=== PATIENT | female | born 1950 | race Caucasian/White ===

== ENCOUNTER 2017-04-01 06:19 | Inpatient (IN) ==
[2017-04-01] MEDS ORDERED: Albuterol 2.5 MG/3 ML NEBULIZER IH ONE (06:36)
[2017-04-01] MEDS ORDERED: cefOXitin 2,000 MG in D5% in Water (Mini-Bag+) 100 ML IVPB ONE (06:36)
[2017-04-01] MEDS ORDERED: Ringers Solution, Lactated 1,000 ML IVC SCH (06:45)
[2017-04-01] MEDS ORDERED: *HR* Succinylcholine 200 MG/10 ML VIAL IVP ONE (06:56)
[2017-04-01] MEDS ORDERED: Lidocaine -MPF 2% 2 ML VIAL ONE (06:56)
[2017-04-01] MEDS ORDERED: *HR* FentaNYL (PF) 100 MCG/2 ML VIAL ONE (06:56)
[2017-04-01] MEDS ORDERED: *HR* Propofol 200 MG/20 ML VIAL IVP ONE (06:56)
[2017-04-01] MEDS ORDERED: *HR* Rocuronium Bromide 50 MG/5 ML VIAL ONE (06:56)
[2017-04-01] MEDS ORDERED: Lidocaine -MPF 4% 5 ML AMPUL ONE (06:59)
[2017-04-01] MEDS ORDERED: Lidocaine -MPF 1% 2 ML VIAL ONE (06:59)
--- NOTE | 2017-04-01 07:07 | Anesthesia Evaluation PreOp ---
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 HX Other Medical History: GERD Anesthesia History: No Prior Anesthetic Complications, Past Anesthesia (RCR, MURALI , appy) Alcohol Use: none Drug use: none Medications and Allergies Metoprolol [Lopressor] 50 mg PO BID 06/06/15 [History] Simvastatin [Zocor] 40 mg PO HS 06/06/15 [History] Aspirin [Lo-Dose Aspirin EC] 81 mg PO DAILY 03/24/17 [History] Ferrous Sulfate [Slow Release Iron] 47.5 mg PO DAILY 03/24/17 [History] Losartan Potassium [Cozaar] 1 tab PO DAILY 03/24/17 [History] Omeprazole [PriLOSEC] 40 mg PO DAILY 03/24/17 [History] 3 Allergy/AdvReac Type Severity Reaction Status Date / Time No Known Allergies Allergy Verified 02/08/17 09:13 - Meds/Allergy Pre-op Review Medications Reviewed: Yes Allergies Reviewed: Yes Beta Blockers on Current Med List: Yes If Beta Blockers taken, Date/Time (Last Dose taken): today 043 Anesthesia Results - Labs Laboratory Tests 03/30/17 03/30/17 14:45 14:45 Hgb 13.9 Hct 42.8 Plt Count 199 Sodium 139 Potassium 4.1 BUN 11 Creatinine 0.76 - Imaging EKG: report reviewed (SINUS BRADYCARDIA MODERATE VOLTAGE CRITERIA FOR LVH) Additional studies: stress test: The exercise capacity was fair. Occasional PVCs noted during exercise. Exercise ECG is negative for ischemia. Gated LVEF > 70%. Perfusion imaging was negative for ischemia or infarct. Anesthesia Exam Selected Entries 04/01/17 06:50 Temperature 97.9 F Pulse Rate 55 Respiratory Rate 18 Blood Pressure 135/77 O2 Sat by Pulse Oximetry 98 Height: 63in Weight: 64kg NPO (# of Hours): 8 - HEENT Pupil (Motor): EOMI Mallampati: III Teeth: Poor dentition Oral Opening: Greater than 3 - PUBLICATIONS DESIGNER LOC: Oriented PUBLICATIONS DESIGNER Motor: Normal RUE, Normal LUE, Normal RLE, Normal LLE, Normal Face PUBLICATIONS DESIGNER Sensory: Normal: RUE, LUE, RLE, LLE, Face - Cardiac Rhythm: Regular Murmur: None - Pulmonary Breath Sounds: bilateral Clear Respiratory Effort: Symmetrical Anesthesia Assess/Plan ASA Score: 2 Modified Pearce Scale for Level of Consciousness: Cooperative, oriented, and tranquil Anesthetic Plan: General Monitoring Plan: Standard Monitors Recovery Plan: PACU (Discussed risks of GA, questions answered and agrees to proceed)
[2017-04-01] MEDS ORDERED: *HR* Midazolam HCl 2 MG/2 ML VIAL ONE (07:09)
--- NOTE | 2017-04-01 07:42 | History & Physical Report ---
Date of Encounter: 04/01/17 Time of Encounter: 07:41 24 Hour HP Update - Instructions Instructions: If the History and Physical is less than 30 days old and was completed prior to A.M. admission and or procedure and has NOT been updated on calendar day of procedure please complete this update prior to performing procedure. - Update Patient reports changes in Medical Condition: No Changes in examination, assessment, or condition: No Changes in Medication: No Preop tests/diagnostics Reviewed: Yes Surgery Remains Indicated: Yes Consent for Planned Operative Procedure(s) Verified: Yes - Pre-Operative Checklist Preoperative Checklist Indicated: Yes Prophylactic Antibiotic Ordered: Yes Home Medications Include Beta Roberto: Yes Beta Roberto Taken Today (Day of Surgery): Yes
[2017-04-01] MEDS ORDERED: *HR* Phenylephrine 10 MG/ML VIAL ONE (08:15)
[2017-04-01] MEDS ORDERED: *HR* Labetalol 20 MG/4 ML SYRINGE IVP PRN (08:38)
[2017-04-01] MEDS ORDERED: Ondansetron 4 MG/2 ML VIAL IVP PRN (08:38)
[2017-04-01] MEDS ORDERED: Ondansetron 4 MG/2 ML VIAL ONE (08:40)
[2017-04-01] MEDS ORDERED: Dexamethasone 4 MG/ML VIAL ONE (08:40)
[2017-04-01] MEDS ORDERED: Neostigmine Methylsulfate 3 MG/3 ML SYRINGE ONE (08:52)
[2017-04-01] MEDS ORDERED: Ketorolac 30 MG/ML VIAL ONE (08:55)
[2017-04-01] MEDS ORDERED: Lidocaine 1% 20 ML MDV ONE (08:57)
[2017-04-01] MEDS ORDERED: Ketamine *HR* 500 MG/10 ML MDV ONE (08:57)
[2017-04-01] MEDS ORDERED: Acetaminophen IV 1,000 MG/100 ML INFUS..BTL ONE (08:57)
[2017-04-01] MEDS ORDERED: *HR* HYDROmorphone 2 MG/ML SYRINGE ONE (10:59)
[2017-04-01] MEDS: *HR* HYDROmorphone (PF) 1 MG/ML SYRINGE IVP PRN ×3 (11:44→12:02)
[2017-04-01] MEDS ORDERED: Naloxone 0.4 MG/ML INJ IVP PRN ×2 (12:33→15:05)
[2017-04-01] MEDS ORDERED: *HR* HYDROmorphone 20 MG/20 ML PCA IVC PRN ×2 (12:36→15:39)
[2017-04-01] MEDS ORDERED: Ketorolac 15 MG/ML VIAL IVP PRN ×2 (12:37→15:05)
[2017-04-01] MEDS ORDERED: D5% in 0.45% NACL 1,000 ML IVC SCH (12:45)
[2017-04-01 13:45] LABS: BUN/Creatinine Ratio 22 (6-26); Blood Urea Nitrogen 17 mg/dL (7-20); Calcium 9.1 mg/dL (8.6-10.8); Carbon Dioxide 24 mEq/L (19-29); Chloride 109 mEq/L (98-109); Glucose 114 mg/dL (70-99); Osmolality,Calculated 290 (280-300); Potassium 4.1 mEq/L (3.5-4.5); Sodium 139 mEq/L (136-145); eGFR For African Americans > 60 (> 60); eGFR For Non-African Americans > 60 (> 60)
[2017-04-01] MEDS ORDERED: *HR* OxyCODONE/APAP 5/325 TABLET PO PRN (14:30)
[2017-04-01] MEDS ORDERED: Ipratropium/Albuterol Neb 3 ML IH PRN (15:05)
[2017-04-01 15:26] LABS: Hematocrit 37.5 % (35.3-44.9)
[2017-04-01 15:28] LABS: Hemoglobin 11.6 g/dL (11.5-15.4)
[2017-04-01] MEDS: D5% in 0.45% NACL 1,000 ML IVC SCH (16:41)
[2017-04-01] MEDS: Metoprolol XL (24 HR) Succ 25 MG TAB.ER.24H PO SCH (20:24)
[2017-04-02] MEDS: Ondansetron 4 MG/2 ML VIAL IVP PRN (02:41)
[2017-04-02 05:58] LABS: Basophils % 0.1 %; Hematocrit 35.5 % (35.3-44.9); Immature Granulocytes % 0.5 % (0-4); Lymphocytes # 2.9 K/mcL (0.6-4.6); Lymphocytes % 18.9 %; Mean Corpuscular Hemoglobin 26.5 pg (28.0-33.3); Mean Corpuscular Volume 85.5 fL (83.0-100.0); Mean Platelet Volume 12.4 fL (9.4-12.4); Monocytes # 1.6 K/mcL (0.0-1.3); Monocytes % 10.2 %; Neutrophils # 10.8 K/mcL (1.6-8.9); Platelet Count 149 K/mcL (140-400); Red Blood Count 4.15 M/mcL (3.82-4.97); Red Cell Distribution Width 20.5 % (11.5-14.5); Segmented Neutrophils % 70.3 %
[2017-04-02 06:10] LABS: BUN/Creatinine Ratio 20 (6-26); Blood Urea Nitrogen 15 mg/dL (7-20); Calcium 8.7 mg/dL (8.6-10.8); Carbon Dioxide 23 mEq/L (19-29); Chloride 106 mEq/L (98-109); Glucose 122 mg/dL (70-99); Osmolality,Calculated 284 (280-300); Sodium 136 mEq/L (136-145); eGFR For African Americans > 60 (> 60); eGFR For Non-African Americans > 60 (> 60)
[2017-04-02 06:12] LABS: Potassium 4.1 mEq/L (3.5-4.5)
[2017-04-02] MEDS: D5% in 0.45% NACL 1,000 ML IVC SCH ×2 (06:12→23:13)
[2017-04-02] MEDS: Tiotropium 18 MCG inhalation IH SCH (08:14)
[2017-04-02] MEDS: Losartan/HCTZ 50-12.5 TABLET PO SCH (09:17)
[2017-04-02] MEDS: Metoprolol XL (24 HR) Succ 25 MG TAB.ER.24H PO SCH ×2 (09:17→23:21)
--- NOTE | 2017-04-02 11:12 | Operative Note ---
Date of procedure: 04/02/17 Pre-op diagnosis: Cecal A-V malformation Post-op diagnosis: same Procedure: Robotic ascending colectomy Anesthesia: GEOVANNA Surgeon: Rainer Garsia Estimated blood loss (cc): 25 Specimen: Right colon Condition: stable Disposition: same day Procedure in Detail: After informed consent, the patient was taken to the operating room. The after adequate anesthesia the abdomen was prepped and draped. The patient was then placed in a slight head upposition and the robot was brought over the patient and the arms wereconnected. Once in place, I sat at the console and performed a dissection of the cecum and appendix, as well as the terminal ileum due to scarring retarded our excursion. Once this was freed, I then grasped the cecum with a clamp utilizing robotic arm number one and with the vessel sealer and another hand began to take down the peritoneal attachment around the ileocolic vessel. Once we were able to gain access into the retroperitoneum, the duodenum was identified and kept out of harm's way. The ileocolic vessel was taken with the vessel sealer. Once this was completed, then the remainder of the mesentery was divided using the vessel sealer towards the transverse colon. The transverse colon was then skeletonized and robotic 45mm stapler was used to transect the transverse colon. Once that was completed, then the attachments were taken down off of the hepatic flexure and the white line of Toldt was taken down on the right colic gutter as well. The terminal ileum was then divided after approximately 12 inches had been skeletonized. It too was taken with the robotic 45mm stapler. Once this was completed, then the transverse colon and the terminal ileum were opened with scissors. A common rant was opened in the colon and the terminal ileum, and then a robotic 45mm stapler was used to anastomose the bowel. Individual 3-0 silk sutures were then used to close the common enterotomy. Once this was completed, a small counter incision was made at one of the port sites and a 15 mm cannula site was placed as well as an endobag. The specimen was placed in the endobag and brought out through the left lower quadrant. The bowel was removed and placed on the back table. The fascia of the left lower quadrant incision was closed with an 0 Vicryl suture x3. The skin was closed with 4-0 Vicryl suture in inverted interrupted fashion. Dermabond was placed on the skin incisions. All the CO2 had been deflated from the abdomen prior to leaving the abdominal cavity. He tolerated the procedure well. All instrument counts and needle counts were correct at the end of the case. He was extubated in the operating room, taken to recovery in stable condition.
--- NOTE | 2017-04-02 13:32 | General Surgery Progress Note ---
Date of Encounter: 04/02/17 Time of Encounter: 13:15 - Assessment and Plan (1) Personal history of arterial venous malformation (AVM) Current Visit: Yes Status: Acute POD #1 Robotic ascending colectomy with Dr. Garsia Continue clear liquid diet while awaiting return of bowel function IV fluids at 75 mL per hour Supportive care and pain control- scheduled Tylenol and Toradol, oxycodone and Dilaudid as needed Increase activity as tolerated and the ambulate in the hallways with assistance Incentive spirometer every 1 hour while awake PPI therapy daily Repeat a.m. labs (2) DVT prophylaxis Current Visit: Yes Status: Acute EPCDs to bilateral lower extremities for DVT prophylaxis Ambulate in the hallways 3 times per day with assistance Subjective Patient reports: still having pain, pain is less (with toradol), voiding w/o difficulty, no flatus, no bowel movement, nausea (last evening but resolved not ; no appetite), afebrile Objective Vital Signs - Last 8 Hours Temp Pulse Resp BP Pulse Ox 04/02/17 10:31 98.1 F 73 16 119/75 95 04/02/17 06:57 98.9 F 88 18 122/72 92 Intake and Output 04/01/17 04/02/17 04/02/17 23:59 07:59 15:59 Intake Total 600 / 600 1000 / 1000 0 / 0 Output Total 0 / 0 200 / 200 0 / 0 Balance 600 / 600 800 / 800 0 / 0 Intake: IV Fluids 1000 / 1000 D5% And 0.45% Nacl 1000 1000 / 1000 Ml Bag 1,000 ML @ 75 mls/ hr IVC .[id number] [facility] Rx#: [id number] Oral 600 / 600 0 / 0 Output: Urine 0 / 0 200 / 200 0 / 0 Other: # Voids 1 2 Weight 65.1 kg Patient Weight 04/02/17 23:59 Weight 65.1 kg - General physical appearance well developed, well nourished, moderate pain - Eyes normal ocular movement - ENT normal mucosa, atraumatic, normocephalic - Neck Neck exam: trachea midline - Respiratory normal respiratory effort, clear to auscultation, other (diminished bibasilar bases; moist, productive cough noted) - Cardiovascular Cardiovascular exam: Present: RRR - Abdomen Abdomen: Present: soft, tender (expected post-operative tenderness) - Incision Incision: Present: clean and dry, intact - Neurologic CN 2-12 grossly intact - Psychiatric oriented to time, oriented to person, oriented to place, speech is normal, memory intact - Labs 04/02/17 05:31 04/02/17 05:31 Diabetes panel 04/01/17 04/02/17 Range/Units 13:10 05:31 Sodium 139 136 (136-145) mEq/L Potassium 4.1 4.1 (3.5-4.5) mEq/L Chloride 109 106 (98-109) mEq/L Carbon Dioxide 24 23 (19-29) mEq/L BUN 17 15 (7-20) mg/dL Creatinine 0.76 0.74 (0.57-1.11) mg/dL Glucose 114 H 122 H (70-99) mg/dL Calcium 9.1 8.7 (8.6-10.8) mg/dL Calcium panel 04/01/17 04/02/17 Range/Units 13:10 05:31 Calcium 9.1 8.7 (8.6-10.8) mg/dL Pituitary panel 04/01/17 04/02/17 Range/Units 13:10 05:31 Sodium 139 136 (136-145) mEq/L Potassium 4.1 4.1 (3.5-4.5) mEq/L Chloride 109 106 (98-109) mEq/L Carbon Dioxide 24 23 (19-29) mEq/L BUN 17 15 (7-20) mg/dL Creatinine 0.76 0.74 (0.57-1.11) mg/dL Glucose 114 H 122 H (70-99) mg/dL Calcium 9.1 8.7 (8.6-10.8) mg/dL Adrenal panel 04/01/17 04/02/17 Range/Units 13:10 05:31 Sodium 139 136 (136-145) mEq/L Potassium 4.1 4.1 (3.5-4.5) mEq/L Chloride 109 106 (98-109) mEq/L Carbon Dioxide 24 23 (19-29) mEq/L BUN 17 15 (7-20) mg/dL Creatinine 0.76 0.74 (0.57-1.11) mg/dL Glucose 114 H 122 H (70-99) mg/dL Calcium 9.1 8.7 (8.6-10.8) mg/dL - VTE Documentation of Mechanical Device: Intermittent pneumatic compression device Consult Discharge Plan - Plan Referrals: Rainer Garsia DO [Partnered Physician] - 04/12/17 10:45 am Veronica Vallejo CNP [Primary Care Provider] - - Attending Attestation For this encounter, I have reviewed the CLAY STAIN MIXER or PA documentation, treatment plan, and medical decision making; and I have had face to face time with this patient.
[2017-04-02] MEDS ORDERED: *HR* HYDROmorphone (PF) 1 MG/ML SYRINGE IVP PRN (13:35)
[2017-04-02] MEDS ORDERED: *HR* OxyCODONE Immed Rel 5 MG TABLET PO PRN (13:36)
[2017-04-02] MEDS: Ipratropium/Albuterol Neb 3 ML IH SCH ×2 (15:42→22:11)
[2017-04-02] MEDS: Ketorolac 15 MG/ML VIAL IVP SCH ×2 (15:42→23:14)
[2017-04-02] MEDS: Acetaminophen 325 MG TABLET PO SCH ×3 (18:17→23:13)
[2017-04-03] MEDS: Ipratropium/Albuterol Neb 3 ML IH SCH ×4 (04:19→22:25)
[2017-04-03 05:38] LABS: Basophils % 0.2 %; Eosinophils % 0.3 %; Hematocrit 31.8 % (35.3-44.9); Hemoglobin 10.3 g/dL (11.5-15.4); Immature Granulocytes % 0.4 % (0-4); Lymphocytes # 2.2 K/mcL (0.6-4.6); Lymphocytes % 16.7 %; Mean Corpuscular HGB Conc 32.4 g/dL (31.6-35.5); Mean Corpuscular Volume 86.4 fL (83.0-100.0); Mean Platelet Volume 11.8 fL (9.4-12.4); Monocytes # 1.1 K/mcL (0.0-1.3); Monocytes % 8.5 %; Neutrophils # 9.9 K/mcL (1.6-8.9); Platelet Count 114 K/mcL (140-400); Red Blood Count 3.68 M/mcL (3.82-4.97); Segmented Neutrophils % 73.9 %
[2017-04-03 05:58] LABS: BUN/Creatinine Ratio 15 (6-26); Blood Urea Nitrogen 11 mg/dL (7-20); Carbon Dioxide 23 mEq/L (19-29); Chloride 104 mEq/L (98-109); Glucose 128 mg/dL (70-99); Osmolality,Calculated 281 (280-300); Potassium 3.5 mEq/L (3.5-4.5); Sodium 135 mEq/L (136-145); eGFR For African Americans > 60 (> 60); eGFR For Non-African Americans > 60 (> 60)
[2017-04-03] MEDS: Ketorolac 15 MG/ML VIAL IVP SCH ×3 (06:38→18:37)
[2017-04-03] MEDS: Metoprolol XL (24 HR) Succ 25 MG TAB.ER.24H PO SCH ×2 (09:51→20:34)
[2017-04-03] MEDS: Losartan/HCTZ 50-12.5 TABLET PO SCH (09:51)
[2017-04-03] MEDS: D5% in 0.45% NACL 1,000 ML IVC SCH ×2 (09:52→18:38)
--- NOTE | 2017-04-03 13:11 | General Surgery Progress Note ---
Date of Encounter: 04/03/17 Time of Encounter: 13:08 - Assessment and Plan (1) Personal history of arterial venous malformation (AVM) Current Visit: Yes Status: Acute Patient status post robot transverse colectomy postoperative day 2. Continue to await return of bowel function. Will advance diet to full liquids and decrease IV fluids. Noted mild elevation of WBC but I think this leukocytosis is reactionary and will follow closely. We will also repeat BMP in a.m. Out of bed and ambulation with assistance. Subjective Patient reports: other (Noted mild distension. No nausea or vomiting. No flatus. Mild abdominal pain.) Objective Vital Signs - Last 8 Hours Temp Pulse Resp BP Pulse Ox 04/03/17 12:25 98.5 F 86 18 119/71 94 04/03/17 10:15 16 96 04/03/17 08:21 98.6 F 89 18 102/67 92 Intake and Output 04/02/17 04/03/17 04/03/17 23:59 07:59 15:59 Intake Total 1000 / 1000 0 / 0 1000 / 1000 Output Total 500 / 500 0 / 0 0 / 0 Balance 500 / 500 0 / 0 1000 / 1000 Intake: IV Fluids 1000 / 1000 1000 / 1000 D5% And 0.45% Nacl 1000 1000 / 1000 1000 / 1000 Ml Bag 1,000 ML @ 75 mls/ hr IVC .[id number] [facility] Rx#: [id number] Oral 0 / 0 0 / 0 0 / 0 Output: Urine 500 / 500 0 / 0 0 / 0 Other: Weight 65.5 kg Patient Weight 04/03/17 23:59 Weight 65.5 kg - General physical appearance well nourished, no distress - Abdomen Abdomen: Present: bowel sounds present (Scant sounds.), soft, tympanic, tender ( Incisional pain and mid abdominal discomfort. ) - Labs 04/04/17 05:46 04/04/17 05:46 Diabetes panel 04/03/17 Range/Units 05:26 Sodium 135 L (136-145) mEq/L Potassium 3.5 (3.5-4.5) mEq/L Chloride 104 (98-109) mEq/L Carbon Dioxide 23 (19-29) mEq/L BUN 11 (7-20) mg/dL Creatinine 0.71 (0.57-1.11) mg/dL Glucose 128 H (70-99) mg/dL Calcium 9.0 (8.6-10.8) mg/dL Calcium panel 04/03/17 Range/Units 05:26 Calcium 9.0 (8.6-10.8) mg/dL Pituitary panel 04/03/17 Range/Units 05:26 Sodium 135 L (136-145) mEq/L Potassium 3.5 (3.5-4.5) mEq/L Chloride 104 (98-109) mEq/L Carbon Dioxide 23 (19-29) mEq/L BUN 11 (7-20) mg/dL Creatinine 0.71 (0.57-1.11) mg/dL Glucose 128 H (70-99) mg/dL Calcium 9.0 (8.6-10.8) mg/dL Adrenal panel 04/03/17 Range/Units 05:26 Sodium 135 L (136-145) mEq/L Potassium 3.5 (3.5-4.5) mEq/L Chloride 104 (98-109) mEq/L Carbon Dioxide 23 (19-29) mEq/L BUN 11 (7-20) mg/dL Creatinine 0.71 (0.57-1.11) mg/dL Glucose 128 H (70-99) mg/dL Calcium 9.0 (8.6-10.8) mg/dL - VTE Documentation of Mechanical Device: Intermittent pneumatic compression device Consult Discharge Plan - Plan Referrals: Rainer Garsia DO [Partnered Physician] - 04/12/17 10:45 am Veronica Vallejo CNP [Primary Care Provider] -
[2017-04-03] MEDS: Ondansetron 4 MG/2 ML VIAL IVP PRN (13:16)
[2017-04-03] MEDS: Tiotropium 18 MCG inhalation IH SCH (15:35)
[2017-04-04] MEDS: D5% in 0.45% NACL 1,000 ML IVC SCH ×3 (02:23→17:46)
[2017-04-04] MEDS: Ipratropium/Albuterol Neb 3 ML IH SCH ×4 (03:45→22:10)
[2017-04-04] MEDS: Ketorolac 15 MG/ML VIAL IVP SCH ×5 (06:11→23:54)
[2017-04-04 06:26] LABS: Basophils % 0.1 %; Eosinophils # 0.1 K/mcL (0.0-0.6); Eosinophils % 0.7 %; Hematocrit 33.1 % (35.3-44.9); Hemoglobin 10.6 g/dL (11.5-15.4); Immature Granulocytes % 0.4 % (0-4); Lymphocytes # 1.4 K/mcL (0.6-4.6); Lymphocytes % 14.1 %; Mean Corpuscular Hemoglobin 27.7 pg (28.0-33.3); Mean Corpuscular Volume 86.6 fL (83.0-100.0); Mean Platelet Volume 12.1 fL (9.4-12.4); Neutrophils # 7.4 K/mcL (1.6-8.9); Platelet Count 134 K/mcL (140-400); Red Blood Count 3.82 M/mcL (3.82-4.97); Red Cell Distribution Width 19.6 % (11.5-14.5); Segmented Neutrophils % 74.7 %
[2017-04-04 06:49] LABS: BUN/Creatinine Ratio 14 (6-26); Blood Urea Nitrogen 9 mg/dL (7-20); Calcium 9.3 mg/dL (8.6-10.8); Carbon Dioxide 26 mEq/L (19-29); Chloride 105 mEq/L (98-109); Glucose 104 mg/dL (70-99); Osmolality,Calculated 281 (280-300); Potassium 3.4 mEq/L (3.5-4.5); Sodium 136 mEq/L (136-145); eGFR For African Americans > 60 (> 60); eGFR For Non-African Americans > 60 (> 60)
[2017-04-04] MEDS ORDERED: D5% in 0.45% NACL 1,000 ML IVC SCH (09:45)
--- NOTE | 2017-04-04 09:48 | General Surgery Progress Note ---
Date of Encounter: 04/04/17 Time of Encounter: 09:46 - Assessment and Plan (1) Personal history of arterial venous malformation (AVM) Current Visit: Yes Status: Acute Patient status post robot transverse colectomy postoperative day 3. Will hold on any further advancement of diet. Increase IVF to 80ml/hr. Await return of bowel function. Subjective Patient reports: other (Patient admits to some nausea. Bloating. No flatus or BM. ) Objective Vital Signs - Last 8 Hours Temp Pulse Resp BP Pulse Ox 04/04/17 08:08 98.1 F 78 18 112/75 92 Intake and Output 04/03/17 04/04/17 04/04/17 23:59 07:59 15:59 Intake Total 250 / 250 900 / 900 0 / 0 Output Total 1800 / 1800 0 / 0 Balance -1550 / -1550 900 / 900 0 / 0 Intake: IV Fluids 900 / 900 D5% And 0.45% Nacl 1000 900 / 900 Ml Bag 1,000 ML @ 40 mls/ hr IVC .Q24H [facility] Rx#: [id number] Oral 250 / 250 0 / 0 Output: Urine 1800 / 1800 0 / 0 Other: Meal Dinner Percent of Meal Consumed 0% - General physical appearance well nourished, no distress - Abdomen Abdomen: Present: bowel sounds present (Scant.), soft, distended (Mild incisional pain to palpation. Band-Aids in place.) - Incision Incision: Present: clean and dry, intact (No erythema) - Labs 04/04/17 05:46 04/04/17 05:46 Diabetes panel 04/04/17 Range/Units 05:46 Sodium 136 (136-145) mEq/L Potassium 3.4 L (3.5-4.5) mEq/L Chloride 105 (98-109) mEq/L Carbon Dioxide 26 (19-29) mEq/L BUN 9 (7-20) mg/dL Creatinine 0.66 (0.57-1.11) mg/dL Glucose 104 H (70-99) mg/dL Calcium 9.3 (8.6-10.8) mg/dL Calcium panel 04/04/17 Range/Units 05:46 Calcium 9.3 (8.6-10.8) mg/dL Pituitary panel 04/04/17 Range/Units 05:46 Sodium 136 (136-145) mEq/L Potassium 3.4 L (3.5-4.5) mEq/L Chloride 105 (98-109) mEq/L Carbon Dioxide 26 (19-29) mEq/L BUN 9 (7-20) mg/dL Creatinine 0.66 (0.57-1.11) mg/dL Glucose 104 H (70-99) mg/dL Calcium 9.3 (8.6-10.8) mg/dL Adrenal panel 04/04/17 Range/Units 05:46 Sodium 136 (136-145) mEq/L Potassium 3.4 L (3.5-4.5) mEq/L Chloride 105 (98-109) mEq/L Carbon Dioxide 26 (19-29) mEq/L BUN 9 (7-20) mg/dL Creatinine 0.66 (0.57-1.11) mg/dL Glucose 104 H (70-99) mg/dL Calcium 9.3 (8.6-10.8) mg/dL - VTE Documentation of Mechanical Device: Intermittent pneumatic compression device Consult Discharge Plan - Plan Referrals: Rainer Garsia DO [Partnered Physician] - 04/12/17 10:45 am Veronica Valljeo CNP [Primary Care Provider] -
[2017-04-04] MEDS: Losartan/HCTZ 50-12.5 TABLET PO SCH (09:57)
[2017-04-04] MEDS: Metoprolol XL (24 HR) Succ 25 MG TAB.ER.24H PO SCH ×2 (09:57→20:43)
[2017-04-04] MEDS: Ondansetron 4 MG/2 ML VIAL IVP PRN ×2 (09:57→23:58)
[2017-04-04] MEDS: Tiotropium 18 MCG inhalation IH SCH (10:06)
[2017-04-05] MEDS: D5% in 0.45% NACL 1,000 ML IVC SCH ×2 (04:02→14:46)
[2017-04-05] MEDS: Ipratropium/Albuterol Neb 3 ML IH SCH ×2 (04:16→10:25)
[2017-04-05] MEDS: Ketorolac 15 MG/ML VIAL IVP SCH ×2 (05:56→11:42)
[2017-04-05] MEDS: Losartan/HCTZ 50-12.5 TABLET PO SCH (08:00)
[2017-04-05] MEDS: Metoprolol XL (24 HR) Succ 25 MG TAB.ER.24H PO SCH ×2 (08:00→21:21)
[2017-04-05] MEDS: Tiotropium 18 MCG inhalation IH SCH ×2 (10:20→15:25)
[2017-04-05] MEDS ORDERED: Albuterol 2.5 MG/3 ML NEBULIZER IH STA (14:05)
[2017-04-05] MEDS ORDERED: Albuterol 2.5 MG/3 ML NEBULIZER IH PRN (14:05)
--- NOTE | 2017-04-05 14:21 | General Surgery Progress Note ---
Date of Encounter: 04/05/17 Time of Encounter: 14:00 - Assessment and Plan (1) Colon AV malformation Current Visit: Yes Status: Acute POD #4 robotic transverse colon resection with primary anastomosis d/t Cecal A- V malformation with Dr. Garsia on 04/01/2017 Postoperative ileus per AA series 04/05/2017: -Continue supportive care and discomfort management -NPO except sips and chips. Pt is agreeable to NG if she vomits again or if abdominal discomfort increases. -Will consider advancing diet pending clinical course -Will add reglan 10 mg Q6H -Ambulate in the halls at least 3 times daily and out of bed to chair at least 3 times daily -Encouraged IS -Continue GI prophylaxis -PT/OT eval and treat for d/c planning. -Repeat am labs and replace electrolytes for bowel function (2) Postoperative ileus Current Visit: Yes Status: Acute See plan above (3) COPD (chronic obstructive pulmonary disease) Current Visit: Yes Status: Acute Noted home Spiriva was being held d/t Duoneb treatments, but Duonebs have also been intermittenly held. -Give Spiriva now and then as scheduled -Give albuterol inhaler now (prior to spiriva) and then Q2H PRN Qualifiers: COPD type: unspecified COPD Qualified Code(s): J44.9 - Chronic obstructive pulmonary disease, unspecified (4) DVT prophylaxis Current Visit: Yes Status: Acute EPCDs while in bed Frequent ambulation Heparin 5000 units SQ BID Subjective Patient reports: feels better, still having pain, pain is less, voiding w/o difficulty, flatus, no bowel movement, vomiting (one episode this am.) Narrative: States she did have one episode of vomiting this am, but now feels better and is passing gas. Feels the urge to have a BM. States she feels a little short of breath, but has not been receiving her home Spirva. Objective Vital Signs - Last 8 Hours Temp Pulse Resp BP Pulse Ox 04/05/17 11:54 99.1 F 98 16 116/73 97 04/05/17 10:25 18 95 04/05/17 07:49 98.4 F 87 16 109/75 95 Intake and Output 04/04/17 04/05/17 04/05/17 23:59 07:59 15:59 Intake Total 1000 / 1000 1850 / 1850 2812 / 2812 Output Total 100 / 100 100 / 100 Balance 900 / 900 1750 / 1750 2812 / 2812 Intake: IV Fluids 1000 / 1000 1850 / 1850 2812 / 2812 D5% And 0.45% Nacl 1000 1000 / 1000 950 / 950 812 / 812 Ml Bag 1,000 ML @ 100 mls /hr IVC .Q10H [facility] Rx#: [id number] Oral 0 / 0 0 / 0 Output: Urine 100 / 100 100 / 100 Other: Meal NPO NPO Percent of Meal Consumed 0% Weight 63.8 kg Blood Glucose* 138 142 166 Patient Weight 04/05/17 23:59 Weight 63.8 kg - General physical appearance well nourished, no distress, moderate pain - Eyes normal ocular movement - ENT atraumatic, normocephalic - Neck Neck exam: trachea midline - Respiratory other (Decreased and tight breath sounds. Exp wheezing noted) - Cardiovascular Cardiovascular exam: Present: RRR, murmurs (Diminished S2) - Abdomen Abdomen: Present: bowel sounds present, soft, tender (Expected post-operative tenderness) Hernia: none - Incision Incision: Present: clean and dry, intact - Integumentary no rash - Neurologic CN 2-12 grossly intact - Musculoskeletal normal gait, normal posture - Psychiatric oriented to time, oriented to person, oriented to place, speech is normal, memory intact - Labs 04/04/17 05:46 04/04/17 05:46 - VTE Documentation of Mechanical Device: Intermittent pneumatic compression device Consult Discharge Plan - Plan Referrals: Rainer Garsia DO [Partnered Physician] - 04/12/17 10:45 am Veronica Vallejo CNP [Primary Care Provider] -
[2017-04-05] MEDS: Metoclopramide 10 MG/2 ML VIAL IVP SCH ×3 (14:43→23:46)
[2017-04-05] MEDS: *HR* Heparin 5,000 UNIT/ML VIAL SQ SCH (18:56)
[2017-04-06] MEDS: D5% in 0.45% NACL 1,000 ML IVC SCH (01:22)
[2017-04-06] MEDS: Metoclopramide 10 MG/2 ML VIAL IVP SCH ×3 (05:45→19:01)
[2017-04-06] MEDS: *HR* Heparin 5,000 UNIT/ML VIAL SQ SCH ×2 (05:46→19:01)
[2017-04-06 06:29] LABS: Basophils % 0.1 %; Eosinophils % 0.4 %; Hematocrit 35.4 % (35.3-44.9); Hemoglobin 11.3 g/dL (11.5-15.4); Immature Granulocytes % 0.4 % (0-4); Lymphocytes # 1.3 K/mcL (0.6-4.6); Lymphocytes % 16.3 %; Mean Corpuscular HGB Conc 31.9 g/dL (31.6-35.5); Mean Corpuscular Hemoglobin 26.8 pg (28.0-33.3); Mean Corpuscular Volume 84.1 fL (83.0-100.0); Mean Platelet Volume 11.1 fL (9.4-12.4); Monocytes # 1.3 K/mcL (0.0-1.3); Monocytes % 16.1 %; Neutrophils # 5.4 K/mcL (1.6-8.9); Platelet Count 240 K/mcL (140-400); Red Blood Count 4.21 M/mcL (3.82-4.97); Red Cell Distribution Width 19.6 % (11.5-14.5); Segmented Neutrophils % 66.7 %
[2017-04-06 06:42] LABS: BUN/Creatinine Ratio 20 (6-26); Blood Urea Nitrogen 13 mg/dL (7-20); Calcium 9.3 mg/dL (8.6-10.8); Carbon Dioxide 21 mEq/L (19-29); Chloride 104 mEq/L (98-109); Glucose 136 mg/dL (70-99); Osmolality,Calculated 284 (280-300); Potassium 3.1 mEq/L (3.5-4.5); Sodium 136 mEq/L (136-145); eGFR For African Americans > 60 (> 60); eGFR For Non-African Americans > 60 (> 60)
[2017-04-06] MEDS: Metoprolol XL (24 HR) Succ 25 MG TAB.ER.24H PO SCH (07:47)
[2017-04-06] MEDS: Losartan/HCTZ 50-12.5 TABLET PO SCH (07:47)
[2017-04-06] MEDS: Tiotropium 18 MCG inhalation IH SCH (08:14)
[2017-04-06] MEDS ORDERED: *HR* Metoprolol 5 MG/5 ML VIAL IVP PRN (10:22)
[2017-04-06] MEDS ORDERED: Chloraseptic Spray 177 ML BOTTLE MM PRN (10:27)
[2017-04-06] MEDS ORDERED: Potassium Chloride 40 MEQ, Lidocaine 1% 2 ML in D5% in Water 500 ML IVPB ONE (10:30)
[2017-04-06] MEDS ORDERED: *HR* Promethazine 25 MG/ML VIAL IVP PRN (10:31)
--- NOTE | 2017-04-06 10:37 | General Surgery Progress Note ---
Date of Encounter: 04/06/17 Time of Encounter: 10:15 - Assessment and Plan (1) Colon AV malformation Current Visit: Yes Status: Acute POD #5 robotic transverse colon resection with primary anastomosis d/t Cecal A- V malformation with Dr. Garsia on 04/01/2017 Postoperative ileus per AA series 04/05/2017: -Continue supportive care and discomfort management -NPO except ice chips (8oz per shift). -NG tube placed and immediate return of 700 ml bilious output (1500 ml out total since insertion this am); LIWS -Insert PICC and begin TPN/lipids today (Total MIV and TPN at 75 ml) -Continue reglan 10 mg Q6H -Out of bed to chair at least 3 times daily -Encouraged IS -Continue GI prophylaxis -PT/OT eval and treat for d/c planning. -Repeat am labs and replace electrolytes for bowel function Replaced 40 K PIV (2) Postoperative ileus Current Visit: Yes Status: Acute See plan above (3) COPD (chronic obstructive pulmonary disease) Current Visit: Yes Status: Acute Continue respiratory treatments, IS, and out of bed to chair at least TID Qualifiers: COPD type: unspecified COPD Qualified Code(s): J44.9 - Chronic obstructive pulmonary disease, unspecified (4) DVT prophylaxis Current Visit: Yes Status: Acute EPCDs while in bed Frequent ambulation Heparin 5000 units SQ BID (5) Hypokalemia Current Visit: Yes Status: Acute See plan above Subjective Patient reports: still having pain, pain is less, voiding w/o difficulty, no flatus, no bowel movement, nausea, vomiting, afebrile Objective Vital Signs - Last 8 Hours Temp Pulse Resp BP Pulse Ox 04/06/17 08:15 16 94 04/06/17 07:13 99.1 F 93 15 129/75 94 04/06/17 04:12 99.0 F 93 15 131/77 94 Intake and Output 04/05/17 04/06/17 04/06/17 23:59 07:59 15:59 Intake Total 0 / 0 1000 / 1000 0 / 0 Output Total 650 / 650 350 / 350 700 / 700 Balance -650 / -650 650 / 650 -700 / -700 Intake: IV Fluids 1000 / 1000 D5% And 0.45% Nacl 1000 1000 / 1000 Ml Bag 1,000 ML @ 100 mls /hr IVC .Q10H [facility] Rx#: [id number] Oral 0 / 0 0 / 0 0 / 0 Output: Urine 250 / 250 350 / 350 Emesis 400 / 400 Gastric Tube Lavage 700 / 700 Amount Left Nare 700 / 700 Other: Meal NPO Percent of Meal Consumed 0% Weight 64.3 kg Blood Glucose* 121 121 Patient Weight 04/06/17 23:59 Weight 64.3 kg - General physical appearance no distress, moderate pain - Eyes normal ocular movement - ENT atraumatic, normocephalic, Other (NG noted left nares) - Neck Neck exam: trachea midline, no venous distension - Respiratory normal expansion, normal respiratory effort, clear to auscultation - Cardiovascular Cardiovascular exam: Present: RRR - Abdomen Abdomen: Present: bowel sounds present (ABSENT), distended, tender Hernia: none - Incision Incision: Present: clean and dry, intact - Integumentary no rash - Neurologic CN 2-12 grossly intact - Musculoskeletal normal gait, normal posture - Psychiatric oriented to time, oriented to person, oriented to place, memory intact - Labs 04/06/17 06:04 04/06/17 06:04 Diabetes panel 04/06/17 Range/Units 06:04 Sodium 136 (136-145) mEq/L Potassium 3.1 L (3.5-4.5) mEq/L Chloride 104 (98-109) mEq/L Carbon Dioxide 21 (19-29) mEq/L BUN 13 (7-20) mg/dL Creatinine 0.66 (0.57-1.11) mg/dL Glucose 136 H (70-99) mg/dL Calcium 9.3 (8.6-10.8) mg/dL Calcium panel 04/06/17 Range/Units 06:04 Calcium 9.3 (8.6-10.8) mg/dL Pituitary panel 04/06/17 Range/Units 06:04 Sodium 136 (136-145) mEq/L Potassium 3.1 L (3.5-4.5) mEq/L Chloride 104 (98-109) mEq/L Carbon Dioxide 21 (19-29) mEq/L BUN 13 (7-20) mg/dL Creatinine 0.66 (0.57-1.11) mg/dL Glucose 136 H (70-99) mg/dL Calcium 9.3 (8.6-10.8) mg/dL Adrenal panel 04/06/17 Range/Units 06:04 Sodium 136 (136-145) mEq/L Potassium 3.1 L (3.5-4.5) mEq/L Chloride 104 (98-109) mEq/L Carbon Dioxide 21 (19-29) mEq/L BUN 13 (7-20) mg/dL Creatinine 0.66 (0.57-1.11) mg/dL Glucose 136 H (70-99) mg/dL Calcium 9.3 (8.6-10.8) mg/dL - VTE Documentation of Mechanical Device: Intermittent pneumatic compression device Consult Discharge Plan - Plan Referrals: Rainer Garsia DO [Partnered Physician] - 04/12/17 10:45 am Veronica Vallejo, LATANYA [Primary Care Provider] -
[2017-04-06] MEDS ORDERED: Dextrose Gel 15 GM PO PRN ×2 (10:42)
[2017-04-06] MEDS ORDERED: *HR* Dextrose 50 % in Water (Syg) 50 ML SYRINGE IVP PRN (10:42)
[2017-04-06] MEDS ORDERED: D5% in Water 1,000 ML IVC PRN (10:42)
[2017-04-06] MEDS ORDERED: Lidocaine -MPF 1% 2 ML VIAL INFILT ONE (11:21)
[2017-04-06] MEDS: 0.9 % Sodium Chloride 1,000 ML IVC SCH (11:37)
[2017-04-06] MEDS: Acetaminophen IV 1,000 MG/100 ML INFUS..BTL IVPB SCH ×2 (11:38→16:53)
[2017-04-06] MEDS: Insulin LISPRO 300 UNITS/3 ML VIAL SQ SCH ×2 (11:40→19:00)
[2017-04-06] MEDS ORDERED: D10% in Water 500 ML IVC PRN (12:47)
[2017-04-06 13:30] LABS: Magnesium 1.4 mg/dL (1.6-2.6); Phosphorous 2.6 mg/dL (2.3-4.7)
[2017-04-06] MEDS ORDERED: Clinimix E 5%-15% SOLUTION 2,000 ML with MVI, adult with vitamin K 10 ML IVC SCH (17:00)
[2017-04-06] MEDS: Pantoprazole 40 MG VIAL IVP SCH (19:01)
[2017-04-07] MEDS: Insulin LISPRO 300 UNITS/3 ML VIAL SQ SCH ×4 (00:01→18:06)
[2017-04-07] MEDS: Acetaminophen IV 1,000 MG/100 ML INFUS..BTL IVPB SCH ×5 (00:55→19:47)
[2017-04-07] MEDS: Metoclopramide 10 MG/2 ML VIAL IVP SCH ×4 (01:04→18:14)
[2017-04-07] MEDS: Pantoprazole 40 MG VIAL IVP SCH ×2 (06:21→18:14)
[2017-04-07] MEDS: *HR* Heparin 5,000 UNIT/ML VIAL SQ SCH ×2 (06:22→19:00)
[2017-04-07 07:10] LABS: Magnesium 1.7 mg/dL (1.6-2.6)
[2017-04-07 07:11] LABS: Phosphorous 6.3 mg/dL (2.3-4.7)
[2017-04-07 09:21] LABS: Basophils % 0.1 %; Eosinophils % 0.3 %; Hematocrit 32.1 % (35.3-44.9); Immature Granulocytes % 0.8 % (0-4); Immature Platelets 5.2 % (1.1-6.1); Lymphocytes # 1.8 K/mcL (0.6-4.6); Lymphocytes % 16.7 %; Mean Corpuscular HGB Conc 32.4 g/dL (31.6-35.5); Mean Corpuscular Hemoglobin 27.5 pg (28.0-33.3); Mean Platelet Volume 11.6 fL (9.4-12.4); Monocytes # 1.3 K/mcL (0.0-1.3); Monocytes % 12.4 %; Neutrophils # 7.3 K/mcL (1.6-8.9); Platelet Count 243 K/mcL (140-400); Red Blood Count 3.78 M/mcL (3.82-4.97); Red Cell Distribution Width 19.4 % (11.5-14.5); Segmented Neutrophils % 69.7 %
[2017-04-07 09:31] LABS: Hemoglobin 10.4 g/dL (11.5-15.4)
[2017-04-07 09:32] LABS: Mean Corpuscular Volume 84.9 fL (83.0-100.0)
[2017-04-07 10:29] LABS: BUN/Creatinine Ratio 24 (6-26); Blood Urea Nitrogen 13 mg/dL (7-20); Calcium 8.7 mg/dL (8.6-10.8); Carbon Dioxide 25 mEq/L (19-29); Chloride 105 mEq/L (98-109); Glucose 112 mg/dL (70-99); Osmolality,Calculated 287 (280-300); eGFR For African Americans > 60 (> 60); eGFR For Non-African Americans > 60 (> 60)
[2017-04-07 10:31] LABS: Phosphorous 2.2 mg/dL (2.3-4.7); Sodium 138 mEq/L (136-145)
[2017-04-07] MEDS ORDERED: Potassium Chloride 40 MEQ, Lidocaine 1% 2 ML in D5% in Water 500 ML IVPB ONE (10:38)
--- NOTE | 2017-04-07 10:45 | General Surgery Progress Note ---
Date of Encounter: 04/07/17 Time of Encounter: 10:30 - Assessment and Plan (1) Personal history of arterial venous malformation (AVM) Current Visit: Yes Status: Acute POD #6 Robotic ascending colectomy with Dr. Garsia IV fluids- total fluid rate 75ml/hour (MIV + TPN) PICC line and TPN while awaiting return of bowel function Supportive care and pain control- scheduled Tylenol, Dilaudid as needed Increase activity as tolerated and the ambulate in the hallways with assistance Incentive spirometer every 1 hour while awake PPI therapy daily Repeat a.m. labs Check UA AAS now (2) Postoperative ileus Current Visit: Yes Status: Acute NPO with NG tube while awaiting return of bowel function PICC line and TPN therapy AAS now Check UA (3) COPD (chronic obstructive pulmonary disease) Current Visit: Yes Status: Acute Continue Spiriva and Duonebs IS every 1 hour while awake Qualifiers: COPD type: unspecified COPD Qualified Code(s): J44.9 - Chronic obstructive pulmonary disease, unspecified (4) Hypokalemia Current Visit: Yes Status: Acute Replace potassium Repeat am labs (5) DVT prophylaxis Current Visit: Yes Status: Acute Heparin 5,000 units SQ twice daily for DVT prophylaxis EPCDs to bilateral lower extremities for DVT prophylaxis Ambulate in the hallways 3 times per day with assistance Subjective Patient reports: still having pain (post surgical and throat ), voiding w/o difficulty, flatus, bowel movement, diarrhea, afebrile (Tmax 99.7), other ( complaint of sore throat and difficulty swallowing) Objective Vital Signs - Last 8 Hours Temp Pulse Resp BP Pulse Ox 04/07/17 09:10 98.0 F 91 18 95/62 94 04/07/17 05:51 99.7 F H 85 18 120/66 92 Intake and Output 04/06/17 04/07/17 04/07/17 23:59 07:59 15:59 Intake Total 300 / 300 160 / 160 0 / 0 Output Total 1300 / 1300 0 / 0 400 / 400 Balance -1000 / -1000 160 / 160 -400 / -400 Intake: IV Fluids 300 / 300 100 / 100 0.9 % Sodium Chloride 1,000 ML 200 / 200 @ 75 mls/hr IVC .[id number] [facility] Rx #:[id number] Ofirmev 1,000 mg/100 ml 1,000 100 / 100 100 / 100 mg In 100 ml @ 400 mls/hr IVPB Q6H [facility] Rx#:[id number] Oral 60 / 60 0 / 0 Output: Urine 450 / 450 0 / 0 0 / 0 Stool 200 / 200 Gastric Drainage 650 / 650 400 / 400 Other: Meal NPO NPO Stool Size Moderate Large Stool Consistency liquid liquid Stool Characteristics Seedy Stool Color Brown Brown # Bowel Movements 1 Weight 66.9 kg Blood Glucose* 117 125 143 Patient Weight 04/07/17 23:59 Weight 66.9 kg - General physical appearance well developed, moderate pain - Eyes normal ocular movement - ENT dry mucosa, atraumatic, normocephalic - Neck Neck exam: trachea midline - Respiratory normal respiratory effort, other (diminished bibasilar bases) rales: bilateral (upper airways) - Cardiovascular Cardiovascular exam: Present: RRR - Abdomen Abdomen: Present: soft, tender (expected post-operative tenderness), wound (NG tube to LIWS- 400ml bilious drainage since midnight) - Incision Incision: Present: clean and dry, intact - Neurologic CN 2-12 grossly intact - Psychiatric oriented to time, oriented to person, oriented to place, speech is normal, memory intact - Labs 04/07/17 07:33 04/07/17 09:45 Diabetes panel 04/06/17 04/07/17 04/07/17 Range/Units 13:01 03:50 09:45 Sodium TNP 138 Potassium TNP 3.0 L Chloride TNP 105 Carbon Dioxide TNP 25 BUN TNP 13 Creatinine TNP 0.55 L Glucose TNP 112 H Calcium TNP 8.7 Triglycerides 175 H (< 150) mg/dL Calcium panel 04/06/17 04/07/17 04/07/17 Range/Units 13:01 03:50 03:50 Calcium TNP Phosphorus 2.6 6.3 H D (2.3-4.7) mg/dL 04/07/17 Range/Units 09:45 Calcium 8.7 Phosphorus 2.2 L D (2.3-4.7) mg/dL Pituitary panel 04/07/17 04/07/17 Range/Units 03:50 09:45 Sodium TNP 138 Potassium TNP 3.0 L Chloride TNP 105 Carbon Dioxide TNP 25 BUN TNP 13 Creatinine TNP 0.55 L Glucose TNP 112 H Calcium TNP 8.7 Adrenal panel 04/07/17 04/07/17 Range/Units 03:50 09:45 Sodium TNP 138 Potassium TNP 3.0 L Chloride TNP 105 Carbon Dioxide TNP 25 BUN TNP 13 Creatinine TNP 0.55 L Glucose TNP 112 H Calcium TNP 8.7 - VTE Documentation of Mechanical Device: Intermittent pneumatic compression device Consult Discharge Plan - Plan Referrals: Rainer Garsia DO [Partnered Physician] - 04/12/17 10:45 am Veronica Vallejo, [employer]LECT[employer] EXAMINER [Primary Care Provider] - - Attending Attestation For this encounter, I have reviewed the EXPERIMENTAL PHYSICIST or PA documentation, treatment plan, and medical decision making; and I have had face to face time with this patient.
[2017-04-07] MEDS: Tiotropium 18 MCG inhalation IH SCH (11:00)
[2017-04-07] MEDS ORDERED: Potassium Phosphate 44 MEQ in 0.9 % Sodium Chloride 250 ML IVPB ONE (11:12)
[2017-04-07] MEDS ORDERED: Clinimix E 5%-15% SOLUTION 2,000 ML with MVI, adult with vitamin K 10 ML IVC SCH ×2 (17:00)
[2017-04-08] MEDS: Insulin LISPRO 300 UNITS/3 ML VIAL SQ SCH ×3 (00:10→12:53)
[2017-04-08] MEDS: Metoclopramide 10 MG/2 ML VIAL IVP SCH ×3 (00:41→12:56)
[2017-04-08 04:01] LABS: Magnesium 1.5 mg/dL (1.6-2.6); Phosphorous 2.6 mg/dL (2.3-4.7)
[2017-04-08 04:02] LABS: Basophils % 0.2 %; Eosinophils # 0.1 K/mcL (0.0-0.6); Eosinophils % 0.6 %; Hematocrit 30.6 % (35.3-44.9); Hemoglobin 9.6 g/dL (11.5-15.4); Immature Granulocytes % 1.8 % (0-4); Lymphocytes # 2.6 K/mcL (0.6-4.6); Lymphocytes % 20.8 %; Mean Corpuscular HGB Conc 31.4 g/dL (31.6-35.5); Mean Corpuscular Hemoglobin 26.7 pg (28.0-33.3); Mean Corpuscular Volume 85.2 fL (83.0-100.0); Mean Platelet Volume 10.9 fL (9.4-12.4); Monocytes # 1.3 K/mcL (0.0-1.3); Neutrophils # 8.4 K/mcL (1.6-8.9); Platelet Count 259 K/mcL (140-400); Red Blood Count 3.59 M/mcL (3.82-4.97); Red Cell Distribution Width 19.5 % (11.5-14.5); Segmented Neutrophils % 66.6 %
[2017-04-08 04:05] LABS: BUN/Creatinine Ratio 18 (6-26); Blood Urea Nitrogen 10 mg/dL (7-20); Calcium 8.8 mg/dL (8.6-10.8); Carbon Dioxide 24 mEq/L (19-29); Chloride 106 mEq/L (98-109); Glucose 113 mg/dL (70-99); Osmolality,Calculated 286 (280-300); Potassium 3.3 mEq/L (3.5-4.5); Sodium 138 mEq/L (136-145); eGFR For African Americans > 60 (> 60); eGFR For Non-African Americans > 60 (> 60)
[2017-04-08 04:30] LABS: Hypochromasia Present (Not Present)
[2017-04-08 04:31] LABS: Anisocytosis 1+ (Not Present); Microcytosis Present (Not Present)
[2017-04-08 04:32] LABS: Platelet Estimate Normal (Normal)
[2017-04-08] MEDS ORDERED: Acetaminophen IV 1,000 MG/100 ML INFUS..BTL IVPB SCH (05:00)
[2017-04-08] MEDS: Pantoprazole 40 MG VIAL IVP SCH (05:33)
[2017-04-08] MEDS: *HR* Heparin 5,000 UNIT/ML VIAL SQ SCH (05:33)
[2017-04-08 08:30] VITALS: BP 168/73
[2017-04-08] MEDS: Tiotropium 18 MCG inhalation IH SCH (08:43)
[2017-04-08] MEDS: 0.9 % Sodium Chloride 1,000 ML IVC SCH (08:55)
[2017-04-08] MEDS ORDERED: Potassium Chloride 40 MEQ, Lidocaine 1% 2 ML in D5% in Water 500 ML IVPB ONE (08:58)
[2017-04-08] MEDS ORDERED: Losartan/HCTZ 50-12.5 TABLET PO SCH (09:38)
[2017-04-08] MEDS ORDERED: Metoprolol XL (24 HR) Succ 25 MG TAB.ER.24H PO SCH (09:45)
[2017-04-08 11:51] LABS: Bilirubin,Urine Negative (Negative); Blood,Urine Negative (Negative); Clarity,Urine Clear (Clear); Color,Urine Yellow (Yellow); Glucose,Urine (UA) Normal (Normal); Ketones,Urine Negative (Negative); Leukocyte Esterase,Urine Negative (Negative); Nitrite,Urine Negative (Negative); PH,Urine 6.5 pH Units (5.0-8.0); Protein,Urine Negative (Neg-Trace); Specific Gravity,Urine 1.017 (1.010-1.025); Urobilinogen,Urine Normal (Normal)
[2017-04-08] MEDS ORDERED: *HR* Metoprolol 5 MG/5 ML VIAL IVP SCH (12:00)
--- NOTE | 2017-04-08 12:55 | Discharge Summary ---
Date of Encounter: 04/08/17 Time of Encounter: 12:45 - Discharge Diagnosis (1) Personal history of arterial venous malformation (AVM) Priority: Primary Status: Resolved (2) Postoperative ileus Priority: Secondary Status: Resolved (3) COPD (chronic obstructive pulmonary disease) Priority: Secondary Status: Chronic Qualifiers: COPD type: unspecified COPD Qualified Code(s): J44.9 - Chronic obstructive pulmonary disease, unspecified (4) Hypokalemia Priority: Secondary Status: Resolved - Discharge Medications Prescriptions: OxyCODONE/APAP 5/325 [Percocet 5/325 MG] 1 each PO Q4HR PRN #30 tablet PRN Reason: Pain Home Medications: Metoprolol [Lopressor] 25 mg PO BID 06/06/15 [History] Simvastatin [Zocor] 40 mg PO HS 06/06/15 [History] Aspirin [Lo-Dose Aspirin EC] 81 mg PO DAILY 03/24/17 [History] Omeprazole [PriLOSEC] 40 mg PO DAILY 03/24/17 [History] Albuterol Sulfate [Albuterol Inhaler] 2 puff IH Q4HR PRN 04/01/17 [History] Ferrous Sulfate [Iron] 325 mg PO DAILY 04/01/17 [History] Ipratropium/Albuterol Neb [Duoneb] 3 ml IH QID PRN 04/01/17 [History] Losartan/HCTZ [Hyzaar 50-12.5 Tablet] 1 tab PO DAILY 04/01/17 [History] Montelukast [Singulair] 10 mg PO HS 04/01/17 [History] Tiotropium [Spiriva] 1 puff IH DAILY 04/01/17 [History] OxyCODONE/APAP 5/325 [Percocet 5/325 MG] 1 each PO Q4HR PRN #30 tablet 04/08/17 [Rx] Allergies/Adverse Reactions: 3 Allergy/AdvReac Type Severity Reaction Status Date / Time No Known Allergies Allergy Verified 04/01/17 07:16 General Surgery Exam Initial Vital Signs Temp Pulse Resp BP Pulse Ox 97.9 F 55 18 135/77 98 04/01/17 06:50 04/01/17 06:50 04/01/17 06:50 04/01/17 06:50 04/01/17 06:50 - General physical appearance well developed, well nourished, no distress - Eyes normal ocular movement - ENT normal mucosa, atraumatic, normocephalic - Neck trachea midline - Respiratory normal respiratory effort, clear to auscultation, other (diminished bibasilar bases) - Cardiovascular Cardiovascular exam: Present: RRR, murmurs - Abdomen Abdomen general surgery: Present: bowel sounds present, soft, tender (Expected postoperative tenderness) - Incision Incision: Present: clean and dry, intact - Integumentary Integumentary general surgery: Present: warm and dry - Neurologic Present: CN 2-12 grossly intact, normal coordination, normal sensation - Musculoskeletal Present: normal gait, normal posture - Psychiatric Psychiatric general surgery: Present: appropriate, oriented to person, oriented to place, oriented to time, speech is normal, memory intact Date of admission: 04/01/17 13:01 Primary care physician: Veronica Vallejo CNP Consults: 04/05/17 13:59 Consult to Physical Therapy [CONS] Routine Comment: Evaluate, develop and implement POC Reason for Consult: Eval and treat for d/c planning OT [Consult to Occupational Therapy] [CONS] Routine Comment: Evaluate, develop and implement POC Reason for Consult: Eval and treat for d/c planning 04/06/17 10:01 Consult to Invasive Line Access Team [CONS] Routine Reason for Consult: Insert Picc for TPN Line Type: PICC PICC line indications: Parental nutrition Time Notified: 09:55 Call Completed: Yes consult to hospice patient care secretary [Consult to Nutrition] [CONS] Routine Comment: Total IVF at 75 ml/hr (tpn and MIV) Consulting Provider: NUTRITION Reason for Dietary Consult: TPN Start and Manage 04/06/17 11:21 Consult to Invasive Line Access Team [CONS] Routine Reason for Consult: Picc Line Insertion Line Type: PICC Discharging clinician: Fernanda Gunter Anticipated date of discharge: 04/08/17 - Patient Status Disposition: Home, Self-Care Condition: Good Functional capacity at discharge: independent ambulation Overall status at discharge: patient is progressing back to baseline - Discharge Instructions Follow Up With: Veronica Vallejo CNP [Primary Care Provider] - Rainer Garsia DO [Partnered Physician] - Fernanda Gunter CNP [Advanced Practice Nurse] - 04/19/17 8:45 am (surgery follow-up) Additional Instructions: #1 may shower, no tub bath for 2 weeks #2 wash incisions with soap and water and pat dry daily #3 no lifting, pushing, pulling more than 15 pounds for the next 4 weeks #4 no driving until off narcotics for 24 hours and able to safely react in the car #5 may climb stairs #6 incentive spirometer every 1 hour while awake - Diet and Activity Activity: other (See additional instructions above) Diet: advance to your usual diet - Hospital Course Hospital course: Ms. Rosa is a 66 year old female who has been seen and evaluated by Dr. 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 She is status post a robotic-assisted ascending colon resection. Her postoperative course was complicated by a postoperative ileus. She did have an NG tube placed to low intermittent wall suction was maintained on bowel rest while awaiting return of bowel function. She was started on TPN therapy during the period of bowel rest. Her bowel function has returned and her diet has been advanced to a soft diet. She is tolerating this without nausea or vomiting. Her vital signs are stable and she is afebrile. Her pain is well-controlled. She is voiding and ambulating without difficulty. We will begin discharge planed to home and plan for outpatient follow-up in the next 10-14 days. - Time Spent with Patient Total time spent providing and/or coordinating discharge services: Less than 30 minutes Labs on day of discharge: Labs from last 24 hours 04/08/17 04/08/17 04/08/17 12:51 11:44 06:12 WBC RBC Hgb Hct MCV MCH MCHC RDW Plt Count MPV Immature Gran % Seg Neutrophils % Lymphocytes % Monocytes % Eosinophils % Basophils % Neutrophils # Lymphocytes # Monocytes # Eosinophils # Basophils # Platelet Estimate Hypochromasia Anisocytosis Microcytosis Sodium Potassium Chloride Carbon Dioxide BUN Creatinine Est GFR ( Amer) Est GFR (Non-Af Amer) BUN/Creatinine Ratio Glucose POC Glucose 102 H 140 H Calculated Osmolality Calcium Phosphorus Magnesium Urine Color Yellow Urine Clarity Clear Urine pH 6.5 Ur Specific [place] 1.017 Urine Protein Negative Urine Glucose (UA) Normal Urine Ketones Negative Urine Blood Negative Urine Nitrite Negative Urine Bilirubin Negative Urine Urobilinogen Normal Ur Leukocyte Esterase Negative Ur Culture Indicated? NO 04/08/17 04/08/17 04/08/17 03:35 03:35 03:35 WBC 12.6 H RBC 3.59 L Hgb 9.6 L Hct 30.6 L MCV 85.2 MCH 26.7 L MCHC 31.4 L RDW 19.5 H Plt Count 259 MPV 10.9 Immature Gran % 1.8 Seg Neutrophils % 66.6 Lymphocytes % 20.8 Monocytes % 10.0 Eosinophils % 0.6 Basophils % 0.2 Neutrophils # 8.4 Lymphocytes # 2.6 Monocytes # 1.3 Eosinophils # 0.1 Basophils # 0.0 Platelet Estimate Normal Hypochromasia Present A Anisocytosis 1+ A Microcytosis Present A Sodium 138 Potassium 3.3 L Chloride 106 Carbon Dioxide 24 BUN 10 Creatinine 0.55 L Est GFR ( Amer) > 60 Est GFR (Non-Af Amer) > 60 BUN/Creatinine Ratio 18 Glucose 113 H POC Glucose Calculated Osmolality 286 Calcium 8.8 Phosphorus 2.6 Magnesium 1.5 L Urine Color Urine Clarity Urine pH Ur Specific [place] Urine Protein Urine Glucose (UA) Urine Ketones Urine Blood Urine Nitrite Urine Bilirubin Urine Urobilinogen Ur Leukocyte Esterase Ur Culture Indicated? 04/08/17 01:02 WBC RBC Hgb Hct MCV MCH MCHC RDW Plt Count MPV Immature Gran % Seg Neutrophils % Lymphocytes % Monocytes % Eosinophils % Basophils % Neutrophils # Lymphocytes # Monocytes # Eosinophils # Basophils # Platelet Estimate Hypochromasia Anisocytosis Microcytosis Sodium Potassium Chloride Carbon Dioxide BUN Creatinine Est GFR ( Amer) Est GFR (Non-Af Amer) BUN/Creatinine Ratio Glucose POC Glucose 121 H Calculated Osmolality Calcium Phosphorus Magnesium Urine Color Urine Clarity Urine pH Ur Specific [place] Urine Protein Urine Glucose (UA) Urine Ketones Urine Blood Urine Nitrite Urine Bilirubin Urine Urobilinogen Ur Leukocyte Esterase Ur Culture Indicated? - Impressions ITS Impressions Chest/Abdomen X-ray 04/05/17 12:09 IMPRESSION: 1. Gas identified throughout the small bowel with loops of bowel measuring up to 3.9 cm. Findings are nonspecific and can be seen in the setting of ileus or enteritis. Obstruction is considered less likely. 2. Low lung volumes with basilar atelectasis. 3. Cardiomegaly. D/ / 04/05/2017 13:18:18 Melody Mcguire MD / [facility] Interpreting Provider: Melody Mcguire MD Chest/Abdomen X-ray 04/07/17 10:36 IMPRESSION: 1. Persistent bibasilar opacities either atelectasis or pneumonia. 2. Slight interval improvement of dilated small bowel. D/ / 04/07/2017 12:01:08 Nevaeh Vivar MD / [facility] Interpreting Provider: Nevaeh Vivar MD
== END 2017-04-08 14:00 | disposition home or self-care (01) | DRG 330 ==
LOC: SAMDAY 06:19 → 3ANU 13:01
PROVIDERS: ADMIT Surgery; ATTEND Surgery